=== PATIENT | male | born 1990 | race Caucasian/White ===

== ENCOUNTER 2018-10-02 07:51 | Emergency (ER) | payer SELFPAY ==
[~2018-10-02] VITALS: Ht 177.8 cm; Wt 68.0 kg
[2018-10-02 07:57] VITALS: BP 117/79
[2018-10-02] MEDS: IBUPROFEN 600 MG TAB PO ONE (08:20)
[2018-10-02 08:30] VITALS: BP 117/79
== END 2018-10-02 08:30 ==
LOC: MED 07:51
DX: R07.89 Other chest pain (principal)
CPT/HCPCS: 93005; 99283